=== PATIENT | male | born 2005 | race African-American/Black ===

== ENCOUNTER 2025-03-16 16:18 | Emergency (ER) | payer BC, MEDICAID ==
[~2025-03-16] VITALS: Ht 172.7 cm; Wt 55.0 kg
[2025-03-16 16:24] VITALS: TEMP 37; O2SAT 99
[2025-03-16] MEDS: TETANUS, DIPHTHERIA, PERTUSSIS VAC/PF 0.5ML (>10YR OLD) IM ONE (18:26)
[2025-03-16] MEDS: LIDOCAINE HCL 1% 20ML VIAL INFIL ONE (18:26)
[2025-03-16] MEDS: HYDROCODONE/ACETAMINOPHEN 10/325MG TABLET PO ONE (18:26)
[2025-03-16] MEDS: BACITRACIN ZINC OINT UDPKT TOP ONE (18:27)
[2025-03-16] MEDS ORDERED: HYDR-4001 MT (22:23)
[2025-03-16] MEDS ORDERED: CEPH500T MT (22:23)
[2025-03-16] MEDS ORDERED: BO1 TP (22:23)
[2025-03-16] MEDS ORDERED: IBUP-1455 MT (22:23)
[2025-03-16 23:33] VITALS: BP 117/74; PULSE 77; RESP 14; O2SAT 100
== END 2025-03-16 23:39 | disposition home or self-care (01) ==
LOC: ER 16:18
DX: S91.312A Laceration without foreign body, left foot, initial encounter (principal); S41.012A Laceration without foreign body of left shoulder, initial encounter; S21.212A Laceration without foreign body of left back wall of thorax without penetration into thoracic cavity, initial encounter; X58.XXXA Exposure to other specified factors, initial encounter; Y93.89 Activity, other specified; Y92.89 Other specified places as the place of occurrence of the external cause; Y99.8 Other external cause status; Y08.89XA Assault by other specified means, initial encounter
CPT/HCPCS: 72070; 73030; 73620; 90715; 12005; 90471; 99284; J2003; Z7610 ×3